=== PATIENT | male | born 1980 | race Caucasian/White ===

== ENCOUNTER 2017-10-31 22:28 | Emergency (ER) | payer SELFPAY, OTHER ==
[2017-11-01] MEDS: IBUPROFEN 600 MG TAB PO (04:14)
[2017-11-01] MEDS: HYDROCODONE/APAP (5/325) TAB PO (06:43)
[2017-11-01] MEDS: BUPIVACAINE 0.25% (MPF) 30 ML INJ INJ (06:44)
== END 2017-11-01 07:48 | disposition home or self-care (01) ==
LOC: FTE 22:28
DX: S93.104A Unspecified dislocation of right toe(s), initial encounter (principal); W23.0XXA Caught, crushed, jammed, or pinched between moving objects, initial encounter; Y92.321 Football field as the place of occurrence of the external cause
CPT/HCPCS: 28495; 73660; 99283-25